=== PATIENT | female | born 1940 | race Caucasian/White ===

== ENCOUNTER 2016-06-12 19:33 | Inpatient (IN) ==
[2016-06-12] MEDS ORDERED: ZOFRAN 4 MG/2 ML IVP STA (19:46)
[2016-06-12] MEDS ORDERED: SODIUM CHLORIDE 1,000 ML IV STA (19:46)
[2016-06-12] MEDS ORDERED: ROCEPHIN 1 GM in SODIUM CHLORIDE 100 ML IV STA (19:46)
[2016-06-12] MEDS ORDERED: XOPENEX 1.25 MG NEB STA (19:46)
[2016-06-12 20:05] LABS: ABG PCO2 38.4 mmHg (35-45); ABG PH 7.443 (7.35-7.45)
[2016-06-12 20:06] LABS: ABG BASE EXCESS 2 (-2.0-2.0); ABG HCO3 26.3 (22.0-26.0); ABG TCO2 27 (22.0-28.0)
[2016-06-12 20:08] LABS: BASOPHILS % (AUTO) 0.6 % (0.0-3.0); EOSINOPHILS # (AUTO) 0.2 K/ul (0.0-0.7); EOSINOPHILS % (AUTO) 3.4 % (0.0-7.0); HEMATOCRIT 36.7 % (37.0-47.0); HEMOGLOBIN 12.4 g/dl (12.0-16.0); IMMATURE GRANULOCYTE % (AUTO) 0.3 % (0.0-5.0); LYMPHOCYTES # (AUTO) 0.6 K/uL (0.60-3.4); LYMPHOCYTES % (AUTO) 8.5 (10.0-50.0); MEAN CORPUSCULAR HEMOGLOBIN 30.3 pg (27.0-31.0); MEAN CORPUSCULAR HGB CONC 33.8 (31.8-35.4); MEAN CORPUSCULAR VOLUME 89.7 fl (81.0-99.0); MONOCYTES # (AUTO) 0.4 K/uL (0.4-2.0); MONOCYTES % (AUTO) 6.3 (0-10); NEUTROPHILS # (AUTO) 5.5 K/ul (2.0-6.9); NEUTROPHILS % (AUTO) 80.9; PLATELET COUNT 241 10^3/uL (140-440); RED BLOOD COUNT 4.09 10^6/ul (4.20-5.40); WHITE BLOOD COUNT 6.81 K/ul (4.6-10.2)
[2016-06-12] MEDS ORDERED: ROCEPHIN ONE (20:19)
[2016-06-12 20:23] LABS: FLU INTERNAL QC INTERNAL QC VALID; RAPID FLU A NEGATIVE (NEGATIVE); RAPID FLU B NEGATIVE (NEGATIVE)
[2016-06-12 20:25] LABS: ALBUMIN 3.7 g/dL (3.4-5.0); ALBUMIN/GLOBULIN RATIO 1.19; ANION GAP 10.6; BILIRUBIN,TOTAL 0.26 mg/dL (0.00-1.20); BUN/CREATININE RATIO 17.94; CALCIUM 9.3 mg/dL (8.2-10.2); CREATININE 0.78 mg/dL (0.60-1.30); POTASSIUM 3.6 mmol/L (3.5-5.10); TOTAL PROTEIN 6.8 g/dL (5.8-8.1)
[2016-06-12 20:43] LABS: CREATINE KINASE 139 U/L
[2016-06-12 20:44] LABS: CREATINE KINASE MB 1.4 ng/ml (0.0-3.6)
--- NOTE | 2016-06-12 20:45 | CT ---
EXAM: CT of the chest without contrast. HISTORY: Shortness of breath. PROCEDURE: Contiguous axial CT images of the chest without contrast with coronal and sagittal refor mats. FINDINGS: The heart is within normal limits in size. The thoracic aorta is within normal limits in diameter. There are calcified mediastinal and hilar lymph nodes. There is minimal bibasilar depen dent atelectasis. There are degenerative changes in the spine. Impression: Minimal bibasilar dependent atelectasis.
--- NOTE | 2016-06-12 20:51 | CT ---
EXAM: CT abdomen and pelvis without contrast. HISTORY: Vomiting. Abdominal pain. Surgical history includes cholecystectomy, hysterectomy and ap pendectomy. PROCEDURE: Contiguous axial CT images of the abdomen and pelvis without contrast with coronal and s agittal reformats. FINDINGS: The liver is normal in appearance. The gallbladder is surgically absent. The pancreas, spleen and adrenal glands are normal in appearance. There are nonobstructive calcifications in both kidneys. No ureterolithiasis or hydronephrosis. The abdominal aorta is within normal limits in di ameter. The appendix is surgically absent. There is diverticulosis of the colon with no evidence o f diverticulitis. No free fluid or free air in the abdomen or pelvis. The bladder is adequately fi lled with no abnormality identified. The uterus is surgically absent. There are degenerative pandya es in the spine. Impression: Nonobstructive bilateral nephrolithiasis. No ureterolithiasis or hydronephrosis. Diverticulosis of the colon without diverticulitis. Cholecystectomy. Appendectomy. Hysterectomy.
--- NOTE | 2016-06-12 20:59 | ED.PDOC ---
General ED Provider: Dr. AMARA BARRERA-ER Chief Complaint: Nausea/Vomiting Stated Complaint: im sob and coughing Time Seen by Physician: 19:35 Mode of Arrival: Walk-In Information Source: Patient Exam Limitations: No limitations Primary Care Provider: AMARA BARRERA Nursing and Triage Documentation Reviewed and Agree: Yes Respiratory Complaint Exam - Respiratory Complaint/Exam Onset/Duration: 24hrs Symptoms Are: Still present Timing: Constant Initial Severity: Mild Current Severity: Moderate Location: Chest Character: Reports: Non-productive cough Aggravating: Reports: URI Alleviating: Reports: None Associated Signs and Symptoms: Reports: Fever, Chills, URI, Nasal congestion, Vomiting, Sore throat. Denies: Rapid breathing, Dyspnea, Chest pain, Pleuritic chest pain, Wheezing, Hemoptysis, Dizziness, Calf pain, Calf swelling, Edema, Hoarseness, Sinus discomfort, Weight loss, Decreased oral intake, Increased thirst, Increased appetite, Increased urination Related History: Reports: Similar episode History of Healthcare-Acquired Pneumonia: No Related Surgical History: Reports: None Pulmonary Embolism Risk Factors: None Cardiac Risk Factors: Reports: None Pseudomonas Risk Factors: Reports: None Tuberculosis Risk Factors: Reports: None Status Asthmaticus Risk Factors: Reports: None Home Oxygen Use: No Recent Stress Test: No Recent Echo/LV Function: No Current Antibiotic Use: No Current Asthma Medication Use: No Respiratory Distress: None Inadequate Respiratory Effort: No Dysphagia Present: No Stridor Present: No JVD Present: No Accessory Muscle Use: No Retractions: Not Present Diminished Breath Sounds: No Sinus Tenderness: None Grunting Respirations: No Kussmaul Respirations: No Differential Diagnoses: Pneumonia, Bronchitis, URI Review of Systems - Review Of Systems Constitutional: Reports: Chills, Fever, Weakness Eyes: Reports: No symptoms Ears, Nose, Mouth, Throat: Reports: Throat pain Respiratory: Reports: Cough, Short of air Cardiac: Reports: No symptoms GI: Reports: No symptoms : Reports: No symptoms Musculoskeletal: Reports: No symptoms Skin: Reports: No symptoms Neurological: Reports: No symptoms Endocrine: Reports: No symptoms Hematologic/Lymphatic: Reports: No symptoms All Other Systems: Reviewed and Negative Past Medical History - Past Medical History Previously Healthy: Yes Endocrine: Reports: None Cardiovascular: Reports: None Respiratory: Reports: None, Other Hematological: Reports: None Gastrointestinal: Reports: None Genitourinary: Reports: Kidney stones Neuro/Psych: Reports: None Musculoskeletal: Reports: None Cancer: Reports: None Last Menstrual Period: POST MENOPAUSAL - Surgical History General Surgical History: Reports: Hysterectomy, Appendectomy, Cholecystectomy - Family History Family History: Reports: Unknown - Social History Smoking Status: Never smoker Hx Substance Use: No Alcohol Screening: None Lives: With family - Immunizations Tetanus Shot up to Date: No Physical Exam - Physical Exam Appearance: Well-appearing, No pain distress, Well-nourished Eyes: JUDITH, EOMI, Conjunctiva clear ENT: Ears normal, Nose normal, Oropharynx normal Neck: Supple Respiratory: Airway patent, Breath sounds clear, Breath sounds equal, Respirations nonlabored Cardiovascular: RRR, Pulses normal, No rub, No murmur GI/: Soft, Nontender, No masses, Bowel sounds normal, No Organomegaly Musculoskeletal: Normal strength Skin: Warm, Dry, Normal color Neurological: Sensation intact Psychiatric: Affect appropriate, Mood appropriate Interpretation - Radiology Interpretation Radiology Interpretation By: ED Physician Radiology Results: Negative Exam Interpreted: CT Scan - EKG Interpretation Time of EKG #1: 20:59 Rate: Normal Rhythm: Sinus Ectopy: None [place]: NL ST Segment: Normal Critical Care Note - Critical Care Note Total Time (mins): 0 Course - Course Hematology/Chemistry: 06/12/16 20:00 06/12/16 20:00 Orders, Labs, Meds: Lab Review 06/12/16 06/12/16 06/12/16 19:44 20:00 20:02 WBC 6.81 RBC 4.09 L Hgb 12.4 Hct 36.7 L MCV 89.7 MCH 30.3 MCHC 33.8 RDW Coeff of Avery 14.1 Plt Count 241 Immature Gran % (Auto) 0.3 Neut % (Auto) 80.9 Lymph % (Auto) 8.5 L Chambers % (Auto) 6.3 Eos % (Auto) 3.4 Baso % (Auto) 0.6 Immature Gran # (Auto) 0.0 Neut # 5.5 Lymph # 0.6 Chambers # 0.4 Eos # 0.2 Baso # 0.0 D-Dimer 1.04 Puncture Site Lbrach O2 Saturation 89.0 L ABG pH 7.443 ABG pCO2 38.4 ABG pO2 54.0 L* ABG HCO3 26.3 H ABG Total CO2 27 ABG Base Excess 2 FiO2 % 21.0 Sodium 138 Potassium 3.6 Chloride 106 Carbon Dioxide 25 Anion Gap 10.6 BUN 14 Creatinine 0.78 Estimated GFR (MDRD) 72.00 BUN/Creatinine Ratio 17.94 Glucose 116 H Lactic Acid 10.2 Calcium 9.3 Total Bilirubin 0.26 AST 19 ALT 21 Alkaline Phosphatase 77 Total Creatine Kinase 139 CK-MB (CK-2) 1.4 CK-MB (CK-2) % 1.02969 Troponin I < 0.0100 Total Protein 6.8 Albumin 3.7 Globulin 3.1 Albumin/Globulin Ratio 1.19 Amylase 53 Lipase 34 Procalcitonin < 0.05 Influenza A (Rapid) Negative Influenza B (Rapid) Negative Orders Category Date Time Status ABG DRAW REQUEST Stat CARDIO 06/12/16 19:44 Completed EKG-(ED ONLY) Stat CARDIO 06/12/16 19:45 Completed NEBULIZER TREATMENT Stat CARDIO 06/12/16 19:46 Completed IV [ED IV/MEDIPORT/POWERPORT] .ONCE EMERGENCY 06/12/16 19:45 Active ABG Stat LAB 06/12/16 19:44 Completed AMYLASE Stat LAB 06/12/16 20:00 Completed BLOOD CULTURE Stat LAB 06/12/16 20:00 Received CBC W/ AUTO DIFF Stat LAB 06/12/16 20:00 Completed COMPREHENSIVE METABOLIC PANEL Stat LAB 06/12/16 20:00 Completed CREATINE KINASE Stat LAB 06/12/16 20:02 Completed D-DIMER Stat LAB 06/12/16 20:00 Completed LACTIC ACID Stat LAB 06/12/16 20:00 Completed LIPASE Stat LAB 06/12/16 20:00 Completed MOLECULAR GROUP A STREP Stat LAB 06/12/16 20:00 Results PROCALCITONIN Stat LAB 06/12/16 20:00 Completed RAPID FLU A/B Stat LAB 06/12/16 20:00 Completed STREP SCREEN Stat LAB 06/12/16 20:00 Results TROPONIN I Stat LAB 06/12/16 20:02 Completed 0.9 % Sodium Chloride [Saline Flush] MEDS 06/12/16 19:45 Ordered 1 syr IVF PRN PRN Ceftriaxone Sodium [Rocephin] MEDS 06/12/16 20:19 Discontinued 1 gm .ROUTE .STK-MED ONE Ceftriaxone Sodium [Rocephin] 1 gm MEDS 06/12/16 19:46 Discontinued 0.9 % Sodium Chloride [Sodium Chloride] 100 ml IV ONCE Levalbuterol HCl [Xopenex 1.25 mg] MEDS 06/12/16 19:46 Discontinued 1 vial NEB ONCE STA Ondansetron HCl/Pf [Zofran 4 mg/2 ml] MEDS 06/12/16 19:46 Discontinued 4 mg IVP ONCE STA Sodium Chloride 0.9% [Sodium Chloride] 1,000 ml MEDS 06/12/16 19:46 Active IV 100 mls/hr CT ABDOMEN/PELVIS WO CONTRAST Stat RADS 06/12/16 19:[address] CHEST W/O CONTRAST Stat RADS 06/12/16 19:48 Completed Medications Generic Name Dose Route Start Last Admin Trade Name Freq PRN Reason Stop Dose Admin Sodium Chloride 1,000 mls @ 100 mls/hr 06/12/16 19:46 06/12/16 20:28 Sodium Chloride IV 06/13/16 05:45 100 mls/hr .Q10H STA Administration Sodium Chloride 1 syr 06/12/16 19:45 Saline Flush IVF PRN PRN To flush IV Discontinued Medications Generic Name Dose Route Start Last Admin Trade Name Freq PRN Reason Stop Dose Admin Ceftriaxone Sodium 1 gm/ 100 mls @ 100 mls/hr 06/12/16 19:46 06/12/16 20:28 Sodium Chloride IV 06/12/16 20:45 100 mls/hr ONCE STA Administration Levalbuterol HCl 1 vial 06/12/16 19:46 06/12/16 20:15 Xopenex 1.25 Mg NEB 06/12/16 19:47 1 vial ONCE STA Administration Ondansetron HCl 4 mg 06/12/16 19:46 06/12/16 20:36 Zofran 4 Mg/2 Ml IVP 06/12/16 19:47 4 mg ONCE STA Administration Vital Signs: Temp Pulse Resp BP Pulse Ox 06/12/16 19:33 102.6 F H 91 H 24 146/78 H 90 L Departure - Departure Time of Disposition: 20:59 Disposition: HOME SELF-CARE Discharge Problem: Acute respiratory failure Qualifiers: Respiratory failure complication: hypoxia Qualifier Code: (J96.01) Acute respiratory failure with hypoxia Instructions: Viral Syndrome (ED) Condition: Good Pt referred to PMD for follow-up: Yes Allergies/Adverse Reactions: Allergies Iodinated Contrast Media - Oral and [Iodinated Contrast Media - IV Dye] Adverse Reaction (Verified 06/12/16 19:37) Home Medications: Ambulatory Orders 1 [No Reported Medications] 06/12/16 Disposition Discussed With: Patient, Family
[2016-06-12] MEDS: DUONEB NEB SCH (21:39)
[2016-06-12] MEDS: TYLENOL PO PRN (21:56)
[2016-06-12 22:21] VITALS: BMI 33.5
[2016-06-13] MEDS: DUONEB NEB SCH ×6 (02:26→22:00)
[2016-06-13] MEDS: TYLENOL PO PRN (02:40)
[2016-06-13 05:09] LABS: BASOPHILS % (AUTO) 0.7 % (0.0-3.0); EOSINOPHILS % (AUTO) 0.5 % (0.0-7.0); HEMOGLOBIN 11.2 g/dl (12.0-16.0); IMMATURE GRANULOCYTE % (AUTO) 0.3 % (0.0-5.0); LYMPHOCYTES # (AUTO) 0.3 K/uL (0.60-3.4); LYMPHOCYTES % (AUTO) 5.3 (10.0-50.0); MEAN CORPUSCULAR HEMOGLOBIN 29.9 pg (27.0-31.0); MEAN CORPUSCULAR HGB CONC 32.9 (31.8-35.4); MEAN CORPUSCULAR VOLUME 90.7 fl (81.0-99.0); MONOCYTES # (AUTO) 0.6 K/uL (0.4-2.0); MONOCYTES % (AUTO) 9.4 (0-10); NEUTROPHILS # (AUTO) 4.9 K/ul (2.0-6.9); NEUTROPHILS % (AUTO) 83.8; PLATELET COUNT 221 10^3/uL (140-440); RED BLOOD COUNT 3.75 10^6/ul (4.20-5.40); WHITE BLOOD COUNT 5.83 K/ul (4.6-10.2)
[2016-06-13] MEDS ORDERED: POTASSIUM CHLORIDE 20 MEQ VIAL-ADDITIVE ONLY IV ONE (06:10)
[2016-06-13] MEDS: SODIUM CHLORIDE 0.9%-KCL 20 MEQ 1,000 ML IV SCH ×2 (06:11→23:24)
[2016-06-13 06:17] LABS: ANION GAP 13.9; BUN/CREATININE RATIO 15.47; CREATININE 0.84 mg/dL (0.60-1.30); POTASSIUM 3.9 mmol/L (3.5-5.10)
[2016-06-13 06:18] LABS: ALBUMIN 3.3 g/dL (3.4-5.0); ALBUMIN/GLOBULIN RATIO 0.97; BILIRUBIN,TOTAL 0.2 mg/dL (0.00-1.20); CALCIUM 8.6 mg/dL (8.2-10.2); TOTAL PROTEIN 6.7 g/dL (5.8-8.1)
[2016-06-13] MEDS: NORCO 7.5-325 PO PRN ×3 (07:50→15:09)
[2016-06-13] MEDS: LOVENOX SUBCUT SCH (09:03)
[2016-06-13] MEDS: ZITHROMAX 500 MG in SODIUM CHLORIDE 250 ML IV SCH (09:03)
[2016-06-13] MEDS ORDERED: TYLENOL PO PRN (16:23)
[2016-06-13] MEDS: ZOFRAN 4 MG/2 ML IVP PRN (17:44)
[2016-06-13] MEDS: NORCO 10-325 PO PRN ×2 (19:51→23:54)
[2016-06-13] MEDS: ROCEPHIN 1 GM in SODIUM CHLORIDE 100 ML IV SCH (20:01)
[2016-06-14] MEDS: DUONEB NEB SCH ×2 (01:17→05:10)
[2016-06-14] MEDS: ZOFRAN 4 MG/2 ML IVP PRN ×2 (02:08→09:28)
[2016-06-14 05:47] LABS: BASOPHILS % (AUTO) 0.6 % (0.0-3.0); HEMATOCRIT 35.1 % (37.0-47.0); HEMOGLOBIN 11.5 g/dl (12.0-16.0); IMMATURE GRANULOCYTE % (AUTO) 0.2 % (0.0-5.0); LYMPHOCYTES # (AUTO) 1.1 K/uL (0.60-3.4); LYMPHOCYTES % (AUTO) 23.4 (10.0-50.0); MEAN CORPUSCULAR HEMOGLOBIN 30.5 pg (27.0-31.0); MEAN CORPUSCULAR HGB CONC 32.8 (31.8-35.4); MEAN CORPUSCULAR VOLUME 93.1 fl (81.0-99.0); MONOCYTES # (AUTO) 0.5 K/uL (0.4-2.0); MONOCYTES % (AUTO) 10.9 (0-10); NEUTROPHILS # (AUTO) 3.1 K/ul (2.0-6.9); NEUTROPHILS % (AUTO) 64.9; PLATELET COUNT 196 10^3/uL (140-440); RED BLOOD COUNT 3.77 10^6/ul (4.20-5.40); WHITE BLOOD COUNT 4.75 K/ul (4.6-10.2)
[2016-06-14 06:03] LABS: ALBUMIN 3.2 g/dL (3.4-5.0); ALBUMIN/GLOBULIN RATIO 1.07; ANION GAP 15.1; BILIRUBIN,TOTAL 0.23 mg/dL (0.00-1.20); BUN/CREATININE RATIO 14.28; CALCIUM 8.2 mg/dL (8.2-10.2); CREATININE 0.77 mg/dL (0.60-1.30); POTASSIUM 4.1 mmol/L (3.5-5.10); TOTAL PROTEIN 6.2 g/dL (5.8-8.1)
[2016-06-14] MEDS: LOVENOX SUBCUT SCH (08:30)
[2016-06-14] MEDS: ZITHROMAX 500 MG in SODIUM CHLORIDE 250 ML IV SCH (08:30)
[2016-06-14] MEDS: NORCO 10-325 PO PRN (09:28)
[2016-06-14 10:54] LABS: TROPONIN I 0.056 ng/ml (0.0000-0.4000)
[2016-06-14 10:55] LABS: CREATINE KINASE MB 1.5 ng/ml (0.0-3.6)
[2016-06-14] MEDS: ROCEPHIN 1 GM in SODIUM CHLORIDE 100 ML IV SCH (20:21)
[2016-06-15 06:04] VITALS: BP 152/78; TEMP 98
[2016-06-15 06:14] LABS: BASOPHILS % (AUTO) 0.5 % (0.0-3.0); EOSINOPHILS % (AUTO) 0.7 % (0.0-7.0); HEMATOCRIT 36.2 % (37.0-47.0); HEMOGLOBIN 11.7 g/dl (12.0-16.0); IMMATURE GRANULOCYTE % (AUTO) 0.2 % (0.0-5.0); LYMPHOCYTES # (AUTO) 1.3 K/uL (0.60-3.4); LYMPHOCYTES % (AUTO) 30.3 (10.0-50.0); MEAN CORPUSCULAR HEMOGLOBIN 29.8 pg (27.0-31.0); MEAN CORPUSCULAR HGB CONC 32.3 (31.8-35.4); MEAN CORPUSCULAR VOLUME 92.1 fl (81.0-99.0); MONOCYTES # (AUTO) 0.4 K/uL (0.4-2.0); MONOCYTES % (AUTO) 9.8 (0-10); NEUTROPHILS # (AUTO) 2.5 K/ul (2.0-6.9); NEUTROPHILS % (AUTO) 58.5; PLATELET COUNT 197 10^3/uL (140-440); RED BLOOD COUNT 3.93 10^6/ul (4.20-5.40); WHITE BLOOD COUNT 4.19 K/ul (4.6-10.2)
[2016-06-15 06:38] LABS: ALBUMIN 3.3 g/dL (3.4-5.0); ALBUMIN/GLOBULIN RATIO 1.14; ANION GAP 13.9; BILIRUBIN,TOTAL 0.23 mg/dL (0.00-1.20); BUN/CREATININE RATIO 15.27; CALCIUM 8.3 mg/dL (8.2-10.2); CREATININE 0.72 mg/dL (0.60-1.30); POTASSIUM 3.9 mmol/L (3.5-5.10); TOTAL PROTEIN 6.2 g/dL (5.8-8.1)
[2016-06-15] MEDS: LOVENOX SUBCUT SCH (08:57)
[2016-06-15] MEDS: ZOFRAN 4 MG/2 ML IVP PRN (08:57)
--- NOTE | 2016-08-09 13:22 | HP ---
CHIEF COMPLAINT: "I'm short of breath and I'm coughing." DISCUSSION: This is an elderly 76 year old lady who presented to the emergency department with several days history of fever, chills, upper respiratory congestion, vomiting and sore throat. She had been coughing up purulent sputum. She was evaluated in the emergency department and was found to have a temperature of 102 and hypoxic with a pulse ox of 90%. At this point because her hypoxia we felt that she needed admitted. She was admitted with bronchial dilators, antibiotics and oxygen support. MEDICATIONS: None. ALLERGIES: Contrast dye. PAST MEDICAL HISTORY: Post menopausal History of kidney stone SURGICAL HISTORY: Hysterectomy Appendectomy Cholecystectomy SOCIAL HISTORY: She is a previous smoker. No alcohol or illicit drug use noted. FAMILY HISTORY: Review and thought not to be pertinent to discussion. REVIEW OF SYSTEMS: She has had cough, congestion has been productive of purulent sputum she has had headache and sore throat, No hemoptysis, No abdominal pain, blood in the stool, urinary symptoms or seizures. PHYSICAL EXAMINATION: V/S: Temperature 102.6, pulse 91, respiration 24, blood pressure 146/78 and oxygen saturation is 9090%. HEENT: Pupils are round. NECK: Supple. CHEST: Rhonchus sounds with expiratory wheezes. CARDIOVASCULAR: Regular rate and rhythm. ABDOMEN: Soft, nontender. EXTREMITIES: Distal extremities without cyanosis or edema. ASSESSMENT: 1. Acute respiratory failure with hypoxia probably secondary to bronchitis or bronchial spasm. It should be noted that her chest CT was unremarkable as well as abdominal CT PLAN: 1. The patient was admitted 2. IV fluids support 3. Antibiotics 4. Bronchial dilator 5. Please see orders. MTDD
--- NOTE | 2016-08-09 13:26 | DS ---
PRINCIPAL DIAGNOSIS: 1. Acute respiratory failure secondary to #2 2. Bronchitis with bronchial spasm DISCUSSION: This is an elderly 76 year old lady who presented to the emergency department with several days history of fever, chills, upper respiratory congestion, vomiting and sore throat. She had been coughing up purulent sputum. She was evaluated in the emergency department and was found to have a temperature of 102 and hypoxic with a pulse ox of 90%. At this point because her hypoxia we felt that she needed admitted. She was admitted with bronchial dilators, antibiotics and oxygen support. CLINICAL COURSE: She was admitted to my services with antibiotics, steroids, oxygen support. She did very well with the bronchial dilators. Her nausea and vomiting seemed to resolved. She had tolerated the advise in her diet. Her activity increased and more importantly her oximetry improved as well. At time of discharge she does not require oxygen, her lung sounds had improved and at this point we felt that she was stable for discharge. She was discharge on antibiotics, steroids and we will followup with me in the office as outpatient. Please see orders. MTDD
== END 2016-06-15 17:56 | disposition home or self-care (01) | DRG 202 ==
LOC: ED 19:33 → MEDSURG B 21:08
PROVIDERS: ADMIT Family Medicine; ATTEND Family Medicine
DX: J20.9 Acute bronchitis, unspecified (principal); J96.01 Acute respiratory failure with hypoxia; B34.9 Viral infection, unspecified; R50.9 Fever, unspecified; R11.2 Nausea with vomiting, unspecified; Z87.891 Personal history of nicotine dependence; Z79.899 Other long term (current) drug therapy
CPT/HCPCS: 36415; 80053; 82150; 82550; 82553; 82803; 83605; 83690; 84145; 84484; 85025; 85379; 87040; 87651; 87804; 87880; 93005; 93010; 94640; 94761; 96365; 96375; 99284

== ENCOUNTER 2016-06-27 09:13 | Outpatient (CLI) | payer OTHER ==
[2016-06-27 09:35] LABS: ABG BASE EXCESS 2 (-2.0-2.0); ABG HCO3 27.1 (22.0-26.0); ABG PCO2 43.5 mmHg (35-45); ABG PH 7.403 (7.35-7.45); ABG TCO2 28 (22.0-28.0)
[2016-06-27] MEDS ORDERED: ALBUTEROL 0.083% NEB NEB STA (09:45)
== END 2016-06-27 09:14 | disposition home or self-care (01) ==
LOC: CAR 09:13
PROVIDERS: ATTEND Family Medicine
DX: R06.00 Dyspnea, unspecified (principal)
CPT/HCPCS: 82803

== ENCOUNTER 2017-09-06 09:00 | Outpatient (CLI) | payer OTHER ==
--- NOTE | 2017-09-06 10:23 | US ---
EXAM: Right breast ultrasound. History: Right breast mass. Comparison: Bilateral mammogram 09/06/2017 Technique: Multiple sonographic images through the right breast were obtained. Color duplex Doppler was used to interrogate vascular flow. Findings: 5 mm anechoic benign cyst within the right breast at 10 o'clock 11 cm from nipple. This p robably correlates with mammography. No suspicious masses. Impression: Benign right breast cyst. Recommend followup routine screening mammography in 1 year. BIRADS 2
--- NOTE | 2017-09-06 10:24 | MAMMO ---
EXAM: Bilateral digital diagnostic mammogram (2-D and 3-D) History: Right breast mass. Comparison: None available. Findings: MLO and CC views of bilateral breasts demonstrate scattered fibroglandular breast parenchy ma. CAD was reviewed by the radiologist. Tomosynthesis was performed. Benign bilateral breast calc ifications. There is a nodular density within the upper-outer quadrant of the right breast. No susp icious microcalcifications. Impression: Indeterminate upper-outer quadrant nodular density within the right breast. Recommend f urther evaluation with ultrasound. BIRADS 0
== END 2017-09-06 09:01 | disposition home or self-care (01) ==
LOC: RAD 09:00
PROVIDERS: ATTEND Family Medicine
DX: R59.9 Enlarged lymph nodes, unspecified (principal); N60.01 Solitary cyst of right breast

== ENCOUNTER 2018-07-15 15:21 | Emergency (ER) | payer OTHER ==
[2018-07-15 15:23] VITALS: BP 170/85; TEMP 97.5; BMI 34.1
--- NOTE | 2018-07-15 15:43 | ED.PDOC ---
General ED Provider: Dr. HARLEY MALONEY Chief Complaint: Extremity Pain/Injury Stated Complaint: two days lower leg calf discomfort Time Seen by Physician: 15:43 Mode of Arrival: Walk-In Information Source: Patient, Family Exam Limitations: No limitations Primary Care Provider: AMARA BARRERA Nursing and Triage Documentation Reviewed and Agree: Yes Does patient meet sepsis criteria?: No System Inflammatory Response Syndrome: Not Applicable Sepsis Protocol: For patient's 13 years and over: Temp is 96.8 and below OR 101 and greater Pulse >90 BPM Resp >20/minute Acutely Altered Mental Status Are patient's symptoms suggestive of a new infection, such as: -Pneumonia -Skin, Soft Tissue -Endocarditis -UTI -Bone, Joint Infection -Implantable Device -Acute Abdominal Infection -Wound Infection -Meningitis -Blood Stream Catheter Infection -Unknown Cardiovascular Complaint Exam - Hypertension Complaint/Exam Onset/Duration: two days Symptoms Are: Still present Timing: Intermittent Reported B/P Prior to Arrival: 170/85 Aggravating: Reports: Exertion Alleviating: Reports: Rest Associated Signs and Symptoms: Reports: Weakness Related History: Reports: Rx noncompliance Related Surgical History: Reports: None Cardiac Risk Factors: Reports: Hypertension Recent Change in Medications: No A/V Nicking: No Papilledema Present: No JVD Present: No Carotid Bruit Present: No Differential Diagnoses: Hypertension, Hypertensive Urgency, Hyperthyroidism, Migraine Review of Systems - Review Of Systems Constitutional: Reports: No symptoms Eyes: Reports: No symptoms Ears, Nose, Mouth, Throat: Reports: No symptoms Respiratory: Reports: No symptoms Cardiac: Reports: No symptoms GI: Reports: No symptoms : Reports: No symptoms Musculoskeletal: Reports: No symptoms Neurological: Reports: No symptoms Endocrine: Reports: No symptoms Hematologic/Lymphatic: Reports: No symptoms All Other Systems: Reviewed and Negative Past Medical History - Past Medical History Previously Healthy: Yes Endocrine: Reports: None Cardiovascular: Reports: None Respiratory: Reports: None, Other Hematological: Reports: None Gastrointestinal: Reports: None Genitourinary: Reports: Kidney stones Neuro/Psych: Reports: None Musculoskeletal: Reports: None Cancer: Reports: None Last Menstrual Period: none - Surgical History General Surgical History: Reports: Hysterectomy, Appendectomy, Cholecystectomy - Family History Family History: Reports: Unknown - Social History Smoking Status: Never smoker Hx Substance Use: No Alcohol Screening: None Physical Exam - Physical Exam Appearance: Well-appearing Ill-appearing: None Pain Distress: Mild Eyes: JUDITH ENT: Ears normal Neck: Supple Respiratory: Airway patent GI/: Soft Musculoskeletal: Normal strength Skin: Warm Neurological: Sensation intact Psychiatric: Affect appropriate Critical Care Note - Critical Care Note Total Time (mins): 0 Course - Course Orders, Labs, Meds: Orders Category Date Time Status ULTRASOUND VENOUS SCAN LT. LEG [U/S VENOUS SCAN LT LEG] RADS 07/15/18 15:27 Taken Stat Vital Signs: Temp Pulse Resp BP Pulse Ox 07/15/18 15:21 97.5 F L 58 L 20 170/85 H 96 SHARON Risk Score SHARON Risk Score: Risk Score Odds of by 30D 0 0.1 (0.1-0.2) 1 0.3 (0.2-0.3) 2 0.4 (0.3-0.5) 3 0.7 (0.6-0.9) 4 1.2 (1.0-1.5) 5 2.2 (1.9-2.6) 6 3.0 (2.5-3.6) 7 4.8 (3.8-6.1) Departure - Departure Time of Disposition: 16:00 Disposition: HOME SELF-CARE Discharge Problem: Deep vein thrombosis Instructions: Muscle Cramp (ED) Condition: Good Pt referred to PMD for follow-up: Yes IPMP verified?: No Allergies/Adverse Reactions: Allergies Iodinated Contrast- Oral and IV Dye [Iodinated Contrast Media - IV Dye] Adverse Reaction (Verified 07/15/18 15:23) Home Medications: Ambulatory Orders Citalopram Hydrobromide [Celexa] 20 mg PO DAILY #30 tablet 06/15/16 Disposition Discussed With: Patient, Family
--- NOTE | 2018-07-15 16:07 | US ---
EXAM: ULTRASOUND LOWER EXTREMITY VENOUS DOPPLER EXAM HISTORY: Pain behind the knee. FINDINGS: Left lower extremity venous Doppler exam. Real time servin-scale, Doppler spectral analysis and color-flow Doppler imaging performed. The veins targeted for evaluation include the common femo ral, greater saphenous, profundus, femoral, popliteal, peroneal, anterior tibial and posterior tibial . The evaluated veins demonstrated normal spontaneous flow and compression without evidence of thr ombosis. IMPRESSION: No venous thrombosis identified within the areas evaluated.
== END 2018-07-15 16:14 | disposition home or self-care (01) ==
LOC: ED 15:21
DX: I82.4Z2 Acute embolism and thrombosis of unspecified deep veins of left distal lower extremity (principal); R53.1 Weakness; I10 Essential (primary) hypertension; Z91.14 Patient's other noncompliance with medication regimen; Z79.899 Other long term (current) drug therapy
CPT/HCPCS: 99282